=== PATIENT | male | born 1955 | race Caucasian/White ===

== ENCOUNTER 2020-01-12 14:10 | Inpatient (IN) ==
[2020-01-17] MEDS: NIFEdipine XL (24 HR) 30 MG TAB.ER.24 PO SCH (23:08)
[2020-01-17] MEDS: hydrALAZINE 25 MG TABLET PO SCH (23:08)
[2020-01-18 05:39] LABS: Basophils % 0.4 %; Eosinophils # 0.3 K/mcL (0.0-0.6); Eosinophils % 2.3 %; Hematocrit 41.1 % (37.5-50.1); Hemoglobin 13.8 g/dL (12.9-16.9); Immature Granulocytes % 0.5 % (0-4); Lymphocytes # 1.4 K/mcL (0.6-4.6); Lymphocytes % 12.8 %; Mean Corpuscular HGB Conc 33.6 g/dL (31.6-35.5); Mean Corpuscular Hemoglobin 30.6 pg (28.0-33.3); Mean Corpuscular Volume 91.1 fL (83.0-100.0); Mean Platelet Volume 9.8 fL (9.4-12.4); Monocytes # 0.9 K/mcL (0.0-1.3); Monocytes % 8.1 %; Neutrophils # 8.5 K/mcL (1.6-8.9); Platelet Count 319 K/mcL (140-400); Red Blood Count 4.51 M/mcL (4.19-5.50); Red Cell Distribution Width 13.4 % (11.5-14.5); Segmented Neutrophils % 75.9 %; White Blood Count 11.1 K/mcL (4.3-11.1)
[2020-01-18 05:53] LABS: Albumin 3.5 g/dL (3.5-5.7); Albumin/Globulin Ratio 1.3 (1.1-2.2); Bilirubin,Total 1.3 mg/dL (0.3-1.0); Calcium 8.9 mg/dL (8.6-10.3); Globulin 2.6 g/dL (2.4-3.5); Magnesium 2.3 mg/dL (1.6-2.6); Potassium 3.9 mEq/L (3.5-5.1); Total Protein 6.1 g/dL (6.4-8.9)
[2020-01-18] MEDS: lisinopriL 20 MG TABLET PO SCH (09:47)
[2020-01-18] MEDS: Aspirin Enteric Coated 325 MG Tablet PO SCH (09:48)
[2020-01-18] MEDS: hydrALAZINE 25 MG TABLET PO SCH ×2 (09:48→17:21)
[2020-01-18] MEDS: allopurinoL 100 MG TABLET PO SCH (09:48)
[2020-01-18] MEDS: Sennosides 8.6 MG TABLET PO SCH (09:48)
[2020-01-18] MEDS: polyethylene glycoL 3350 17 GM POWD.PACK PO SCH (09:48)
[2020-01-18] MEDS: NIFEdipine XL (24 HR) 30 MG TAB.ER.24 PO SCH (21:19)
[2020-01-19] MEDS: hydrALAZINE 25 MG TABLET PO SCH ×4 (00:40→23:42)
[2020-01-19] MEDS: Sennosides 8.6 MG TABLET PO SCH (08:49)
[2020-01-19] MEDS: Aspirin Enteric Coated 325 MG Tablet PO SCH (08:49)
[2020-01-19] MEDS: lisinopriL 20 MG TABLET PO SCH (08:49)
[2020-01-19] MEDS: allopurinoL 100 MG TABLET PO SCH (08:49)
[2020-01-19] MEDS: polyethylene glycoL 3350 17 GM POWD.PACK PO SCH (08:50)
[2020-01-19] MEDS: NIFEdipine XL (24 HR) 30 MG TAB.ER.24 PO SCH (21:20)
[2020-01-20] MEDS: allopurinoL 100 MG TABLET PO SCH (08:28)
[2020-01-20] MEDS: Sennosides 8.6 MG TABLET PO SCH (08:28)
[2020-01-20] MEDS: polyethylene glycoL 3350 17 GM POWD.PACK PO SCH (08:28)
[2020-01-20] MEDS: lisinopriL 20 MG TABLET PO SCH (08:28)
[2020-01-20] MEDS: Aspirin Enteric Coated 325 MG Tablet PO SCH (08:28)
[2020-01-20] MEDS: hydrALAZINE 25 MG TABLET PO SCH ×3 (08:28→23:46)
[2020-01-20] MEDS: *HR* Enoxaparin 40 MG/0.4 ML SYRINGE SQ SCH (12:51)
[2020-01-20] MEDS ORDERED: Bisacodyl 10 MG RECTAL SUPPOSITORY RC ONE (18:17)
[2020-01-20] MEDS: NIFEdipine XL (24 HR) 30 MG TAB.ER.24 PO SCH (21:15)
[2020-01-21] MEDS: *HR* Enoxaparin 40 MG/0.4 ML SYRINGE SQ SCH (04:59)
[2020-01-21] MEDS ORDERED: *HR* Enoxaparin 30 MG/0.3 ML SYRINGE SQ SCH (06:00)
[2020-01-21] MEDS: polyethylene glycoL 3350 17 GM POWD.PACK PO SCH (08:07)
[2020-01-21] MEDS: lisinopriL 20 MG TABLET PO SCH (08:07)
[2020-01-21] MEDS: allopurinoL 100 MG TABLET PO SCH (08:07)
[2020-01-21] MEDS: Sennosides 8.6 MG TABLET PO SCH (08:08)
[2020-01-21] MEDS: hydrALAZINE 25 MG TABLET PO SCH ×3 (08:08→23:29)
[2020-01-21] MEDS: Aspirin Enteric Coated 325 MG Tablet PO SCH (08:08)
[2020-01-21] MEDS: NIFEdipine XL (24 HR) 30 MG TAB.ER.24 PO SCH (19:50)
[2020-01-22] MEDS: *HR* Enoxaparin 40 MG/0.4 ML SYRINGE SQ SCH (06:28)
[2020-01-22] MEDS: hydrALAZINE 25 MG TABLET PO SCH ×3 (08:32→23:54)
[2020-01-22] MEDS: lisinopriL 20 MG TABLET PO SCH (08:33)
[2020-01-22] MEDS: polyethylene glycoL 3350 17 GM POWD.PACK PO SCH (08:33)
[2020-01-22] MEDS: allopurinoL 100 MG TABLET PO SCH (08:33)
[2020-01-22] MEDS: Aspirin Enteric Coated 325 MG Tablet PO SCH (08:33)
[2020-01-22] MEDS: Sennosides 8.6 MG TABLET PO SCH (08:33)
[2020-01-22] MEDS ORDERED: cloNIDine HCL 0.1 MG TABLET PO ONE (13:10)
[2020-01-22] MEDS: NIFEdipine XL (24 HR) 30 MG TAB.ER.24 PO SCH (20:20)
[2020-01-22] MEDS: Melatonin 3 MG TABLET PO SCH (20:20)
[2020-01-23] MEDS: *HR* Enoxaparin 40 MG/0.4 ML SYRINGE SQ SCH (05:56)
[2020-01-23] MEDS: Sennosides 8.6 MG TABLET PO SCH (08:46)
[2020-01-23] MEDS: allopurinoL 100 MG TABLET PO SCH (08:46)
[2020-01-23] MEDS: lisinopriL 20 MG TABLET PO SCH (08:46)
[2020-01-23] MEDS: hydrALAZINE 25 MG TABLET PO SCH ×3 (08:46→22:48)
[2020-01-23] MEDS: polyethylene glycoL 3350 17 GM POWD.PACK PO SCH (08:46)
[2020-01-23] MEDS: Aspirin Enteric Coated 325 MG Tablet PO SCH (08:46)
[2020-01-23] MEDS: NIFEdipine XL (24 HR) 30 MG TAB.ER.24 PO SCH (19:47)
[2020-01-23] MEDS: Melatonin 3 MG TABLET PO SCH (19:47)
[2020-01-24] MEDS: *HR* Enoxaparin 40 MG/0.4 ML SYRINGE SQ SCH (06:23)
[2020-01-24] MEDS: polyethylene glycoL 3350 17 GM POWD.PACK PO SCH (08:03)
[2020-01-24] MEDS: Sennosides 8.6 MG TABLET PO SCH (08:03)
[2020-01-24] MEDS: hydrALAZINE 25 MG TABLET PO SCH ×2 (08:03→15:21)
[2020-01-24] MEDS: Aspirin Enteric Coated 325 MG Tablet PO SCH (08:03)
[2020-01-24] MEDS: allopurinoL 100 MG TABLET PO SCH (08:03)
[2020-01-24] MEDS: lisinopriL 20 MG TABLET PO SCH (08:03)
[2020-01-24] MEDS: cloNIDine HCL 0.1 MG TABLET PO PRN ×2 (11:39→20:54)
[2020-01-24] MEDS: Bisacodyl 10 MG RECTAL SUPPOSITORY RC PRN (12:55)
[2020-01-24] MEDS: Melatonin 3 MG TABLET PO SCH (20:54)
[2020-01-24] MEDS: NIFEdipine XL (24 HR) 30 MG TAB.ER.24 PO SCH (20:54)
[2020-01-25] MEDS: hydrALAZINE 25 MG TABLET PO SCH ×3 (00:01→17:10)
[2020-01-25 05:17] LABS: Basophils % 0.6 %; Eosinophils # 0.2 K/mcL (0.0-0.6); Eosinophils % 3.9 %; Immature Granulocytes % 0.4 % (0-4); Mean Corpuscular HGB Conc 33.7 g/dL (31.6-35.5); Mean Corpuscular Hemoglobin 30.7 pg (28.0-33.3); Mean Corpuscular Volume 91.1 fL (83.0-100.0); Mean Platelet Volume 8.8 fL (9.4-12.4); Monocytes # 0.6 K/mcL (0.0-1.3); Neutrophils # 3.9 K/mcL (1.6-8.9); Platelet Count 264 K/mcL (140-400); Red Blood Count 3.84 M/mcL (4.19-5.50); Segmented Neutrophils % 72.1 %; White Blood Count 5.4 K/mcL (4.3-11.1)
[2020-01-25 05:19] LABS: Lymphocytes # 0.7 K/mcL (0.6-4.6)
[2020-01-25 05:22] LABS: Hemoglobin 11.8 g/dL (12.9-16.9)
[2020-01-25 05:31] LABS: Calcium 8.5 mg/dL (8.6-10.3); Potassium 4.1 mEq/L (3.5-5.1)
[2020-01-25] MEDS: *HR* Enoxaparin 40 MG/0.4 ML SYRINGE SQ SCH (05:56)
[2020-01-25] MEDS: Acetaminophen 325 MG TABLET PO PRN ×2 (05:57→21:03)
[2020-01-25] MEDS: Aspirin Enteric Coated 325 MG Tablet PO SCH (09:03)
[2020-01-25] MEDS: allopurinoL 100 MG TABLET PO SCH (09:03)
[2020-01-25] MEDS: Sennosides 8.6 MG TABLET PO SCH (09:03)
[2020-01-25] MEDS: lisinopriL 20 MG TABLET PO SCH (09:03)
[2020-01-25] MEDS: polyethylene glycoL 3350 17 GM POWD.PACK PO SCH (09:08)
[2020-01-25] MEDS: Melatonin 3 MG TABLET PO SCH (21:02)
[2020-01-25] MEDS: NIFEdipine XL (24 HR) 30 MG TAB.ER.24 PO SCH (21:03)
[2020-01-25 21:33] LABS: Bilirubin,Urine Negative (Negative); Blood,Urine Negative (Negative); Clarity,Urine Slightly Cloudy (Clear); Glucose,Urine (UA) Normal (Normal); Ketones,Urine Negative (Negative); Leukocyte Esterase,Urine Negative (Negative); Nitrite,Urine Negative (Negative); PH,Urine 6.5 pH Units (5.0-8.0); Protein,Urine 30 mg/dL (Neg-Trace); Urobilinogen,Urine Normal (Normal)
[2020-01-25 21:37] LABS: Amorphous Sediment,Urine Few per hpf (None-Few); Color,Urine Yellow (Yellow)
[2020-01-26] MEDS: hydrALAZINE 25 MG TABLET PO SCH ×4 (01:15→23:57)
[2020-01-26 05:29] LABS: Calcium 8.7 mg/dL (8.6-10.3); Uric Acid 7.1 mg/dL (2.3-7.6)
[2020-01-26] MEDS: *HR* Enoxaparin 40 MG/0.4 ML SYRINGE SQ SCH (06:17)
[2020-01-26] MEDS: PARoxetine 20 MG TABLET PO SCH (08:24)
[2020-01-26] MEDS: Aspirin Enteric Coated 325 MG Tablet PO SCH (08:24)
[2020-01-26] MEDS: lisinopriL 20 MG TABLET PO SCH (08:24)
[2020-01-26] MEDS: Sennosides 8.6 MG TABLET PO SCH (08:25)
[2020-01-26] MEDS: allopurinoL 100 MG TABLET PO SCH (08:25)
[2020-01-26] MEDS: polyethylene glycoL 3350 17 GM POWD.PACK PO SCH (08:25)
[2020-01-26] MEDS: Acetaminophen 325 MG TABLET PO PRN ×2 (08:33→18:42)
[2020-01-26] MEDS ORDERED: Ondansetron 4 MG/2 ML VIAL IVP PRN ×2 (10:28→12:36)
[2020-01-26] MEDS ORDERED: Ondansetron ODT 4 MG TAB.RAPDIS SL PRN ×2 (10:28→12:37)
[2020-01-26] MEDS ORDERED: Famotidine 20 MG TABLET PO ONE (10:29)
[2020-01-26 13:52] LABS: Estimated Average Glucose 128 mg/dl
[2020-01-26] MEDS: cloNIDine HCL 0.1 MG TABLET PO PRN ×2 (18:42→23:57)
[2020-01-26] MEDS: Melatonin 3 MG TABLET PO SCH (20:52)
[2020-01-26] MEDS: NIFEdipine XL (24 HR) 30 MG TAB.ER.24 PO SCH (20:52)
[2020-01-27] MEDS: PARoxetine 20 MG TABLET PO SCH (08:54)
[2020-01-27] MEDS: lisinopriL 20 MG TABLET PO SCH (08:54)
[2020-01-27] MEDS: Aspirin Enteric Coated 325 MG Tablet PO SCH (08:54)
[2020-01-27] MEDS: *HR* Enoxaparin 40 MG/0.4 ML SYRINGE SQ SCH (08:54)
[2020-01-27] MEDS: hydrALAZINE 25 MG TABLET PO SCH ×2 (08:54→16:45)
[2020-01-27] MEDS: Sennosides 8.6 MG TABLET PO SCH (08:54)
[2020-01-27] MEDS: allopurinoL 100 MG TABLET PO SCH (08:54)
[2020-01-27] MEDS: polyethylene glycoL 3350 17 GM POWD.PACK PO SCH (09:03)
[2020-01-27] MEDS: Acetaminophen 325 MG TABLET PO PRN (10:34)
[2020-01-27] MEDS: NIFEdipine XL (24 HR) 30 MG TAB.ER.24 PO SCH (20:31)
[2020-01-27] MEDS: Melatonin 3 MG TABLET PO SCH (20:31)
[2020-01-28] MEDS: cloNIDine HCL 0.1 MG TABLET PO PRN ×2 (01:18→22:21)
[2020-01-28] MEDS: hydrALAZINE 25 MG TABLET PO SCH ×4 (01:18→22:20)
[2020-01-28] MEDS: *HR* Enoxaparin 40 MG/0.4 ML SYRINGE SQ SCH (06:00)
[2020-01-28 06:05] LABS: Hematocrit 32.6 % (37.5-50.1); Hemoglobin 11.2 g/dL (12.9-16.9); Mean Corpuscular HGB Conc 34.4 g/dL (31.6-35.5); Mean Corpuscular Hemoglobin 30.6 pg (28.0-33.3); Mean Corpuscular Volume 89.1 fL (83.0-100.0); Mean Platelet Volume 9.1 fL (9.4-12.4); Platelet Count 237 K/mcL (140-400); Red Blood Count 3.66 M/mcL (4.19-5.50); Red Cell Distribution Width 13.1 % (11.5-14.5); White Blood Count 3.7 K/mcL (4.3-11.1)
[2020-01-28 06:28] LABS: Albumin 3.1 g/dL (3.5-5.7); Albumin/Globulin Ratio 1.4 (1.1-2.2); Bilirubin,Total 0.8 mg/dL (0.3-1.0); Calcium 8.4 mg/dL (8.6-10.3); Chol/HDL Ratio 4.7 (0-4.9); Globulin 2.2 g/dL (2.4-3.5); Magnesium 2.4 mg/dL (1.6-2.6); Total Protein 5.3 g/dL (6.4-8.9)
[2020-01-28 06:39] LABS: Thyroid Stimulating Hormone 2.185 mcIU/mL (0.340-5.600)
[2020-01-28] MEDS: PARoxetine 20 MG TABLET PO SCH (08:45)
[2020-01-28] MEDS: allopurinoL 100 MG TABLET PO SCH (08:45)
[2020-01-28] MEDS: Aspirin Enteric Coated 325 MG Tablet PO SCH (08:45)
[2020-01-28] MEDS: Sennosides 8.6 MG TABLET PO SCH (08:45)
[2020-01-28] MEDS: lisinopriL 20 MG TABLET PO SCH (08:45)
[2020-01-28] MEDS: polyethylene glycoL 3350 17 GM POWD.PACK PO SCH (08:46)
[2020-01-28] MEDS: Bisacodyl 10 MG RECTAL SUPPOSITORY RC PRN (16:06)
[2020-01-28] MEDS: Melatonin 3 MG TABLET PO SCH (22:20)
[2020-01-28] MEDS: NIFEdipine XL (24 HR) 30 MG TAB.ER.24 PO SCH (22:20)
[2020-01-28] MEDS: Mirtazapine 15 MG TABLET PO SCH (22:20)
[2020-01-29] MEDS: *HR* Enoxaparin 40 MG/0.4 ML SYRINGE SQ SCH (05:45)
[2020-01-29] MEDS: allopurinoL 100 MG TABLET PO SCH (08:19)
[2020-01-29] MEDS: lisinopriL 20 MG TABLET PO SCH (08:19)
[2020-01-29] MEDS: Aspirin Enteric Coated 325 MG Tablet PO SCH (08:19)
[2020-01-29] MEDS: Sennosides 8.6 MG TABLET PO SCH (08:19)
[2020-01-29] MEDS: polyethylene glycoL 3350 17 GM POWD.PACK PO SCH (08:20)
[2020-01-29] MEDS: hydrALAZINE 25 MG TABLET PO SCH ×4 (08:21→22:49)
[2020-01-29] MEDS: NIFEdipine XL (24 HR) 30 MG TAB.ER.24 PO SCH (22:49)
[2020-01-29] MEDS: Melatonin 3 MG TABLET PO SCH (22:50)
[2020-01-29] MEDS: Mirtazapine 15 MG TABLET PO SCH (22:50)
[2020-01-30] MEDS: Acetaminophen 325 MG TABLET PO PRN (06:57)
[2020-01-30] MEDS: *HR* Enoxaparin 40 MG/0.4 ML SYRINGE SQ SCH (06:58)
[2020-01-30] MEDS: hydrALAZINE 25 MG TABLET PO SCH ×3 (09:43→23:32)
[2020-01-30] MEDS: allopurinoL 100 MG TABLET PO SCH (09:43)
[2020-01-30] MEDS: lisinopriL 20 MG TABLET PO SCH (09:43)
[2020-01-30] MEDS: Sennosides 8.6 MG TABLET PO SCH (09:43)
[2020-01-30] MEDS: polyethylene glycoL 3350 17 GM POWD.PACK PO SCH (09:43)
[2020-01-30] MEDS: Aspirin Enteric Coated 325 MG Tablet PO SCH (09:43)
[2020-01-30] MEDS: cloNIDine HCL 0.1 MG TABLET PO PRN (20:50)
[2020-01-30] MEDS: Melatonin 3 MG TABLET PO SCH (20:51)
[2020-01-30] MEDS: Mirtazapine 15 MG TABLET PO SCH (20:52)
[2020-01-30] MEDS: NIFEdipine XL (24 HR) 30 MG TAB.ER.24 PO SCH (20:54)
[2020-01-31] MEDS: *HR* Enoxaparin 40 MG/0.4 ML SYRINGE SQ SCH (06:35)
[2020-01-31] MEDS: Aspirin Enteric Coated 325 MG Tablet PO SCH (08:39)
[2020-01-31] MEDS: polyethylene glycoL 3350 17 GM POWD.PACK PO SCH (08:39)
[2020-01-31] MEDS: hydrALAZINE 25 MG TABLET PO SCH ×3 (08:39→23:28)
[2020-01-31] MEDS: Sennosides 8.6 MG TABLET PO SCH (08:39)
[2020-01-31] MEDS: lisinopriL 20 MG TABLET PO SCH (08:39)
[2020-01-31] MEDS: allopurinoL 100 MG TABLET PO SCH (08:39)
[2020-01-31] MEDS: cloNIDine HCL 0.1 MG TABLET PO PRN (16:12)
[2020-01-31] MEDS: Mirtazapine 15 MG TABLET PO SCH (20:39)
[2020-01-31] MEDS: Melatonin 3 MG TABLET PO SCH (20:39)
[2020-01-31] MEDS: NIFEdipine XL (24 HR) 30 MG TAB.ER.24 PO SCH (20:39)
[2020-02-01] MEDS: *HR* Enoxaparin 40 MG/0.4 ML SYRINGE SQ SCH (04:34)
[2020-02-01] MEDS: Aspirin Enteric Coated 325 MG Tablet PO SCH (08:28)
[2020-02-01] MEDS: lisinopriL 20 MG TABLET PO SCH (08:28)
[2020-02-01] MEDS: hydrALAZINE 25 MG TABLET PO SCH ×3 (08:28→23:48)
[2020-02-01] MEDS: Sennosides 8.6 MG TABLET PO SCH (08:28)
[2020-02-01] MEDS: allopurinoL 100 MG TABLET PO SCH (08:28)
[2020-02-01] MEDS: polyethylene glycoL 3350 17 GM POWD.PACK PO SCH ×2 (08:29→20:05)
[2020-02-01] MEDS: Bisacodyl 10 MG RECTAL SUPPOSITORY RC PRN (14:49)
[2020-02-01] MEDS: NIFEdipine XL (24 HR) 30 MG TAB.ER.24 PO SCH (20:03)
[2020-02-01] MEDS: Mirtazapine 15 MG TABLET PO SCH (20:03)
[2020-02-01] MEDS: Melatonin 3 MG TABLET PO SCH (20:03)
[2020-02-02] MEDS: *HR* Enoxaparin 40 MG/0.4 ML SYRINGE SQ SCH (06:31)
[2020-02-02] MEDS: Aspirin Enteric Coated 325 MG Tablet PO SCH (08:15)
[2020-02-02] MEDS: allopurinoL 100 MG TABLET PO SCH (08:15)
[2020-02-02] MEDS: Sennosides 8.6 MG TABLET PO SCH (08:15)
[2020-02-02] MEDS: hydrALAZINE 25 MG TABLET PO SCH ×3 (08:15→23:29)
[2020-02-02] MEDS: lisinopriL 20 MG TABLET PO SCH (08:15)
[2020-02-02] MEDS: polyethylene glycoL 3350 17 GM POWD.PACK PO SCH ×2 (08:16→20:07)
[2020-02-02] MEDS: NIFEdipine XL (24 HR) 30 MG TAB.ER.24 PO SCH (20:07)
[2020-02-02] MEDS: Melatonin 3 MG TABLET PO SCH (20:08)
[2020-02-02] MEDS: Mirtazapine 15 MG TABLET PO SCH (20:08)
[2020-02-03] MEDS: *HR* Enoxaparin 40 MG/0.4 ML SYRINGE SQ SCH (04:58)
[2020-02-03] MEDS: allopurinoL 100 MG TABLET PO SCH (08:50)
[2020-02-03] MEDS: hydrALAZINE 25 MG TABLET PO SCH ×3 (08:50→23:41)
[2020-02-03] MEDS: Sennosides 8.6 MG TABLET PO SCH (08:50)
[2020-02-03] MEDS: Aspirin Enteric Coated 325 MG Tablet PO SCH (08:50)
[2020-02-03] MEDS: lisinopriL 20 MG TABLET PO SCH (08:50)
[2020-02-03] MEDS: polyethylene glycoL 3350 17 GM POWD.PACK PO SCH ×2 (08:50→21:42)
[2020-02-03] MEDS: NIFEdipine XL (24 HR) 30 MG TAB.ER.24 PO SCH (21:36)
[2020-02-03] MEDS: Melatonin 3 MG TABLET PO SCH (21:38)
[2020-02-03] MEDS: cloNIDine HCL 0.1 MG TABLET PO PRN (21:40)
[2020-02-03] MEDS: Mirtazapine 15 MG TABLET PO SCH (21:40)
[2020-02-03] MEDS: Acetaminophen 325 MG TABLET PO PRN (21:41)
[2020-02-04] MEDS: *HR* Enoxaparin 40 MG/0.4 ML SYRINGE SQ SCH (05:49)
[2020-02-04 06:15] LABS: Basophils % 0.6 %; Eosinophils # 0.3 K/mcL (0.0-0.6); Eosinophils % 6.1 %; Hematocrit 30.6 % (37.5-50.1); Hemoglobin 10.1 g/dL (12.9-16.9); Immature Granulocytes % 0.6 % (0-4); Lymphocytes # 0.9 K/mcL (0.6-4.6); Lymphocytes % 17.8 %; Mean Corpuscular Hemoglobin 30.2 pg (28.0-33.3); Mean Corpuscular Volume 91.6 fL (83.0-100.0); Mean Platelet Volume 8.7 fL (9.4-12.4); Monocytes # 0.5 K/mcL (0.0-1.3); Monocytes % 9.7 %; Neutrophils # 3.3 K/mcL (1.6-8.9); Platelet Count 275 K/mcL (140-400); Red Blood Count 3.34 M/mcL (4.19-5.50); Red Cell Distribution Width 13.9 % (11.5-14.5); Segmented Neutrophils % 65.2 %; White Blood Count 5.1 K/mcL (4.3-11.1)
[2020-02-04 06:28] LABS: Calcium 8.7 mg/dL (8.6-10.3); Potassium 4.1 mEq/L (3.5-5.1)
[2020-02-04] MEDS: Sennosides 8.6 MG TABLET PO SCH (08:42)
[2020-02-04] MEDS: lisinopriL 20 MG TABLET PO SCH (08:43)
[2020-02-04] MEDS: Aspirin Enteric Coated 325 MG Tablet PO SCH (08:43)
[2020-02-04] MEDS: allopurinoL 100 MG TABLET PO SCH (08:43)
[2020-02-04] MEDS: polyethylene glycoL 3350 17 GM POWD.PACK PO SCH ×2 (08:44→20:59)
[2020-02-04] MEDS: hydrALAZINE 25 MG TABLET PO SCH ×3 (08:44→23:24)
[2020-02-04] MEDS ORDERED: 0.9 % Sodium Chloride 500 ML IVC ONE (09:26)
[2020-02-04] MEDS ORDERED: 0.9 % Sodium Chloride 500 ML ONE (09:48)
[2020-02-04] MEDS: NIFEdipine XL (24 HR) 30 MG TAB.ER.24 PO SCH (20:56)
[2020-02-04] MEDS: Melatonin 3 MG TABLET PO SCH (20:57)
[2020-02-04] MEDS: cloNIDine HCL 0.1 MG TABLET PO PRN (20:57)
[2020-02-04] MEDS: Acetaminophen 325 MG TABLET PO PRN (20:58)
[2020-02-04] MEDS: Mirtazapine 15 MG TABLET PO SCH (20:58)
[2020-02-04] MEDS: Bisacodyl 10 MG RECTAL SUPPOSITORY RC PRN (20:59)
[2020-02-05] MEDS: Acetaminophen 325 MG TABLET PO PRN (05:27)
[2020-02-05] MEDS: *HR* Enoxaparin 40 MG/0.4 ML SYRINGE SQ SCH (05:28)
[2020-02-05] MEDS: hydrALAZINE 25 MG TABLET PO SCH ×3 (08:32→23:34)
[2020-02-05] MEDS: Aspirin Enteric Coated 325 MG Tablet PO SCH (08:32)
[2020-02-05] MEDS: Sennosides 8.6 MG TABLET PO SCH (08:32)
[2020-02-05] MEDS: lisinopriL 20 MG TABLET PO SCH (08:32)
[2020-02-05] MEDS: allopurinoL 100 MG TABLET PO SCH (08:32)
[2020-02-05] MEDS: polyethylene glycoL 3350 17 GM POWD.PACK PO SCH ×2 (08:33→20:58)
[2020-02-05] MEDS: NIFEdipine XL (24 HR) 30 MG TAB.ER.24 PO SCH (20:55)
[2020-02-05] MEDS: Melatonin 3 MG TABLET PO SCH (20:56)
[2020-02-05] MEDS: Mirtazapine 15 MG TABLET PO SCH (20:56)
[2020-02-05] MEDS: cloNIDine HCL 0.1 MG TABLET PO PRN (20:57)
[2020-02-06] MEDS: Acetaminophen 325 MG TABLET PO PRN (00:25)
[2020-02-06] MEDS: *HR* Enoxaparin 40 MG/0.4 ML SYRINGE SQ SCH (04:59)
[2020-02-06] MEDS: hydrALAZINE 25 MG TABLET PO SCH ×2 (08:30→16:48)
[2020-02-06] MEDS: Aspirin Enteric Coated 325 MG Tablet PO SCH (08:30)
[2020-02-06] MEDS: lisinopriL 20 MG TABLET PO SCH (08:30)
[2020-02-06] MEDS: allopurinoL 100 MG TABLET PO SCH (08:30)
[2020-02-06] MEDS: polyethylene glycoL 3350 17 GM POWD.PACK PO SCH ×2 (08:30→20:44)
[2020-02-06] MEDS: Sennosides 8.6 MG TABLET PO SCH (08:30)
[2020-02-06] MEDS: Melatonin 3 MG TABLET PO SCH (20:43)
[2020-02-06] MEDS: cloNIDine HCL 0.1 MG TABLET PO PRN (20:44)
[2020-02-06] MEDS: NIFEdipine XL (24 HR) 30 MG TAB.ER.24 PO SCH (20:44)
[2020-02-06] MEDS: Mirtazapine 15 MG TABLET PO SCH (20:44)
[2020-02-07] MEDS: hydrALAZINE 25 MG TABLET PO SCH ×3 (00:25→16:50)
[2020-02-07] MEDS: *HR* Enoxaparin 40 MG/0.4 ML SYRINGE SQ SCH (06:43)
[2020-02-07] MEDS: Aspirin Enteric Coated 325 MG Tablet PO SCH (08:40)
[2020-02-07] MEDS: Sennosides 8.6 MG TABLET PO SCH (08:40)
[2020-02-07] MEDS: allopurinoL 100 MG TABLET PO SCH (08:40)
[2020-02-07] MEDS: polyethylene glycoL 3350 17 GM POWD.PACK PO SCH ×2 (08:40→21:23)
[2020-02-07] MEDS: lisinopriL 20 MG TABLET PO SCH (08:40)
[2020-02-07] MEDS: Melatonin 3 MG TABLET PO SCH (21:23)
[2020-02-07] MEDS: cloNIDine HCL 0.1 MG TABLET PO PRN (21:24)
[2020-02-07] MEDS: Mirtazapine 15 MG TABLET PO SCH (21:24)
[2020-02-07] MEDS: NIFEdipine XL (24 HR) 30 MG TAB.ER.24 PO SCH (21:24)
[2020-02-08] MEDS: hydrALAZINE 25 MG TABLET PO SCH ×4 (00:56→22:36)
[2020-02-08] MEDS: *HR* Enoxaparin 40 MG/0.4 ML SYRINGE SQ SCH (06:06)
[2020-02-08] MEDS: lisinopriL 20 MG TABLET PO SCH (08:26)
[2020-02-08] MEDS: Aspirin Enteric Coated 325 MG Tablet PO SCH (08:26)
[2020-02-08] MEDS: allopurinoL 100 MG TABLET PO SCH (08:26)
[2020-02-08] MEDS: Sennosides 8.6 MG TABLET PO SCH (08:26)
[2020-02-08] MEDS: polyethylene glycoL 3350 17 GM POWD.PACK PO SCH ×3 (08:26→22:48)
[2020-02-08] MEDS: Acetaminophen 325 MG TABLET PO PRN (22:36)
[2020-02-08] MEDS: NIFEdipine XL (24 HR) 30 MG TAB.ER.24 PO SCH (22:36)
[2020-02-08] MEDS: Melatonin 3 MG TABLET PO SCH (22:36)
[2020-02-08] MEDS: Mirtazapine 15 MG TABLET PO SCH (22:36)
[2020-02-09] MEDS: *HR* Enoxaparin 40 MG/0.4 ML SYRINGE SQ SCH (06:13)
[2020-02-09] MEDS: lisinopriL 20 MG TABLET PO SCH (08:01)
[2020-02-09] MEDS: Sennosides 8.6 MG TABLET PO SCH (08:01)
[2020-02-09] MEDS: allopurinoL 100 MG TABLET PO SCH (08:02)
[2020-02-09] MEDS: Aspirin Enteric Coated 325 MG Tablet PO SCH (08:02)
[2020-02-09] MEDS: hydrALAZINE 25 MG TABLET PO SCH ×2 (08:02→15:52)
[2020-02-09] MEDS: polyethylene glycoL 3350 17 GM POWD.PACK PO SCH ×2 (08:03→21:32)
[2020-02-09] MEDS: Mirtazapine 15 MG TABLET PO SCH (21:32)
[2020-02-09] MEDS: Melatonin 3 MG TABLET PO SCH (21:32)
[2020-02-09] MEDS: NIFEdipine XL (24 HR) 30 MG TAB.ER.24 PO SCH (21:32)
[2020-02-09] MEDS: Acetaminophen 325 MG TABLET PO PRN (21:37)
[2020-02-10] MEDS: hydrALAZINE 25 MG TABLET PO SCH ×4 (00:32→23:17)
[2020-02-10] MEDS: *HR* Enoxaparin 40 MG/0.4 ML SYRINGE SQ SCH (04:56)
[2020-02-10] MEDS: lisinopriL 20 MG TABLET PO SCH (08:40)
[2020-02-10] MEDS: polyethylene glycoL 3350 17 GM POWD.PACK PO SCH ×2 (08:41→20:05)
[2020-02-10] MEDS: Aspirin Enteric Coated 325 MG Tablet PO SCH (08:41)
[2020-02-10] MEDS: allopurinoL 100 MG TABLET PO SCH (08:41)
[2020-02-10] MEDS: Sennosides 8.6 MG TABLET PO SCH (08:41)
[2020-02-10] MEDS: Acetaminophen 325 MG TABLET PO PRN ×2 (13:25→23:16)
[2020-02-10] MEDS: Melatonin 3 MG TABLET PO SCH (20:03)
[2020-02-10] MEDS: NIFEdipine XL (24 HR) 30 MG TAB.ER.24 PO SCH (20:03)
[2020-02-10] MEDS: Mirtazapine 15 MG TABLET PO SCH (20:04)
[2020-02-10] MEDS: Bisacodyl 10 MG RECTAL SUPPOSITORY RC PRN (20:05)
[2020-02-11] MEDS: Acetaminophen 325 MG TABLET PO PRN ×2 (06:07→22:21)
[2020-02-11] MEDS: *HR* Enoxaparin 40 MG/0.4 ML SYRINGE SQ SCH (06:07)
[2020-02-11] MEDS: hydrALAZINE 25 MG TABLET PO SCH ×3 (08:40→22:21)
[2020-02-11] MEDS: lisinopriL 20 MG TABLET PO SCH (08:40)
[2020-02-11] MEDS: Aspirin Enteric Coated 325 MG Tablet PO SCH (08:40)
[2020-02-11] MEDS: Sennosides 8.6 MG TABLET PO SCH (08:40)
[2020-02-11] MEDS: allopurinoL 100 MG TABLET PO SCH (08:40)
[2020-02-11] MEDS: polyethylene glycoL 3350 17 GM POWD.PACK PO SCH ×2 (08:40→22:22)
[2020-02-11] MEDS: NIFEdipine XL (24 HR) 30 MG TAB.ER.24 PO SCH (22:20)
[2020-02-11] MEDS: Melatonin 3 MG TABLET PO SCH (22:21)
[2020-02-11] MEDS: Mirtazapine 15 MG TABLET PO SCH (22:21)
[2020-02-12] MEDS: *HR* Enoxaparin 40 MG/0.4 ML SYRINGE SQ SCH (04:17)
[2020-02-12 05:36] LABS: Hematocrit 31.9 % (37.5-50.1); Hemoglobin 10.5 g/dL (12.9-16.9); Mean Corpuscular HGB Conc 32.9 g/dL (31.6-35.5); Mean Corpuscular Hemoglobin 30.7 pg (28.0-33.3); Mean Corpuscular Volume 93.3 fL (83.0-100.0); Mean Platelet Volume 9.4 fL (9.4-12.4); Platelet Count 365 K/mcL (140-400); Red Blood Count 3.42 M/mcL (4.19-5.50); Red Cell Distribution Width 14.4 % (11.5-14.5); White Blood Count 5.4 K/mcL (4.3-11.1)
[2020-02-12 05:55] LABS: Calcium 8.9 mg/dL (8.6-10.3); Magnesium 2.3 mg/dL (1.6-2.6); Potassium 3.9 mEq/L (3.5-5.1)
[2020-02-12] MEDS: polyethylene glycoL 3350 17 GM POWD.PACK PO SCH ×2 (08:43→19:54)
[2020-02-12] MEDS: Sennosides 8.6 MG TABLET PO SCH (08:43)
[2020-02-12] MEDS: Aspirin Enteric Coated 325 MG Tablet PO SCH (08:43)
[2020-02-12] MEDS: hydrALAZINE 25 MG TABLET PO SCH ×2 (08:44→16:12)
[2020-02-12] MEDS: lisinopriL 20 MG TABLET PO SCH (08:44)
[2020-02-12] MEDS: allopurinoL 100 MG TABLET PO SCH (08:44)
[2020-02-12] MEDS: NIFEdipine XL (24 HR) 30 MG TAB.ER.24 PO SCH (19:50)
[2020-02-12] MEDS: Melatonin 3 MG TABLET PO SCH (19:51)
[2020-02-12] MEDS: Mirtazapine 15 MG TABLET PO SCH (19:51)
[2020-02-13] MEDS: hydrALAZINE 25 MG TABLET PO SCH ×4 (01:04→22:49)
[2020-02-13] MEDS: *HR* Enoxaparin 40 MG/0.4 ML SYRINGE SQ SCH (05:53)
[2020-02-13] MEDS: Sennosides 8.6 MG TABLET PO SCH (08:09)
[2020-02-13] MEDS: Aspirin Enteric Coated 325 MG Tablet PO SCH (08:09)
[2020-02-13] MEDS: Acetaminophen 325 MG TABLET PO PRN ×2 (08:09→17:57)
[2020-02-13] MEDS: lisinopriL 20 MG TABLET PO SCH (08:09)
[2020-02-13] MEDS: allopurinoL 100 MG TABLET PO SCH (08:09)
[2020-02-13] MEDS: polyethylene glycoL 3350 17 GM POWD.PACK PO SCH ×2 (08:10→22:48)
[2020-02-13] MEDS: Mirtazapine 15 MG TABLET PO SCH (22:49)
[2020-02-13] MEDS: NIFEdipine XL (24 HR) 30 MG TAB.ER.24 PO SCH (22:49)
[2020-02-13] MEDS: Melatonin 3 MG TABLET PO SCH (22:49)
[2020-02-14] MEDS: Acetaminophen 325 MG TABLET PO PRN ×3 (02:35→22:06)
[2020-02-14] MEDS: *HR* Enoxaparin 40 MG/0.4 ML SYRINGE SQ SCH (06:03)
[2020-02-14] MEDS: polyethylene glycoL 3350 17 GM POWD.PACK PO SCH ×2 (08:41→21:47)
[2020-02-14] MEDS: lisinopriL 20 MG TABLET PO SCH (08:42)
[2020-02-14] MEDS: Sennosides 8.6 MG TABLET PO SCH (08:42)
[2020-02-14] MEDS: allopurinoL 100 MG TABLET PO SCH (08:42)
[2020-02-14] MEDS: hydrALAZINE 25 MG TABLET PO SCH ×2 (08:42→15:58)
[2020-02-14] MEDS: Aspirin Enteric Coated 325 MG Tablet PO SCH (08:42)
[2020-02-14] MEDS ORDERED: *HR* HYDROcodone/Acet 5/325 mg TABLET PO PRN (10:20)
[2020-02-14] MEDS: Melatonin 3 MG TABLET PO SCH (21:49)
[2020-02-14] MEDS: NIFEdipine XL (24 HR) 30 MG TAB.ER.24 PO SCH (21:50)
[2020-02-14] MEDS: Mirtazapine 15 MG TABLET PO SCH (21:51)
[2020-02-15] MEDS: hydrALAZINE 25 MG TABLET PO SCH ×3 (00:31→16:49)
[2020-02-15] MEDS: *HR* Enoxaparin 40 MG/0.4 ML SYRINGE SQ SCH (05:20)
[2020-02-15] MEDS: *HR* HYDROcodone/Acet 5/325 mg TABLET PO PRN (05:20)
[2020-02-15] MEDS: polyethylene glycoL 3350 17 GM POWD.PACK PO SCH ×2 (08:59→20:46)
[2020-02-15] MEDS: allopurinoL 100 MG TABLET PO SCH (09:00)
[2020-02-15] MEDS: lisinopriL 20 MG TABLET PO SCH (09:00)
[2020-02-15] MEDS: Aspirin Enteric Coated 325 MG Tablet PO SCH (09:00)
[2020-02-15] MEDS: Sennosides 8.6 MG TABLET PO SCH (09:00)
[2020-02-15] MEDS: predniSONE 20 MG TABLET PO SCH (12:40)
[2020-02-15] MEDS: Colchicine 0.6 MG TABLET PO SCH (12:40)
[2020-02-15] MEDS: Melatonin 3 MG TABLET PO SCH (20:46)
[2020-02-15] MEDS: Mirtazapine 15 MG TABLET PO SCH (20:46)
[2020-02-15] MEDS: NIFEdipine XL (24 HR) 30 MG TAB.ER.24 PO SCH (20:46)
[2020-02-16] MEDS: hydrALAZINE 25 MG TABLET PO SCH ×4 (00:11→23:32)
[2020-02-16] MEDS: *HR* Enoxaparin 40 MG/0.4 ML SYRINGE SQ SCH (05:21)
[2020-02-16] MEDS: Aspirin Enteric Coated 325 MG Tablet PO SCH (08:40)
[2020-02-16] MEDS: polyethylene glycoL 3350 17 GM POWD.PACK PO SCH ×2 (08:40→20:05)
[2020-02-16] MEDS: predniSONE 20 MG TABLET PO SCH (08:40)
[2020-02-16] MEDS: Acetaminophen 325 MG TABLET PO PRN ×3 (08:40→23:32)
[2020-02-16] MEDS: Colchicine 0.6 MG TABLET PO SCH (08:40)
[2020-02-16] MEDS: allopurinoL 100 MG TABLET PO SCH (08:40)
[2020-02-16] MEDS: Sennosides 8.6 MG TABLET PO SCH (08:40)
[2020-02-16] MEDS: lisinopriL 20 MG TABLET PO SCH (08:40)
[2020-02-16] MEDS: Melatonin 3 MG TABLET PO SCH (20:05)
[2020-02-16] MEDS: NIFEdipine XL (24 HR) 30 MG TAB.ER.24 PO SCH (20:05)
[2020-02-16] MEDS: Mirtazapine 15 MG TABLET PO SCH (20:05)
[2020-02-17] MEDS: *HR* Enoxaparin 40 MG/0.4 ML SYRINGE SQ SCH (05:16)
[2020-02-17] MEDS: Bisacodyl 10 MG RECTAL SUPPOSITORY RC PRN (05:53)
[2020-02-17] MEDS: hydrALAZINE 25 MG TABLET PO SCH ×3 (08:03→23:26)
[2020-02-17] MEDS: Colchicine 0.6 MG TABLET PO SCH (08:03)
[2020-02-17] MEDS: allopurinoL 100 MG TABLET PO SCH (08:03)
[2020-02-17] MEDS: Sennosides 8.6 MG TABLET PO SCH (08:03)
[2020-02-17] MEDS: Aspirin Enteric Coated 325 MG Tablet PO SCH (08:03)
[2020-02-17] MEDS: lisinopriL 20 MG TABLET PO SCH (08:03)
[2020-02-17] MEDS: predniSONE 20 MG TABLET PO SCH (08:03)
[2020-02-17] MEDS: polyethylene glycoL 3350 17 GM POWD.PACK PO SCH ×2 (08:03→20:45)
[2020-02-17] MEDS: Acetaminophen 325 MG TABLET PO PRN (08:03)
[2020-02-17] MEDS: NIFEdipine XL (24 HR) 30 MG TAB.ER.24 PO SCH (20:46)
[2020-02-17] MEDS: Melatonin 3 MG TABLET PO SCH (20:46)
[2020-02-17] MEDS: Mirtazapine 15 MG TABLET PO SCH (20:46)
[2020-02-17] MEDS: cloNIDine HCL 0.1 MG TABLET PO PRN (23:26)
[2020-02-18] MEDS: *HR* Enoxaparin 40 MG/0.4 ML SYRINGE SQ SCH (06:08)
[2020-02-18] MEDS: Aspirin Enteric Coated 325 MG Tablet PO SCH (09:44)
[2020-02-18] MEDS: Sennosides 8.6 MG TABLET PO SCH (09:44)
[2020-02-18] MEDS: allopurinoL 100 MG TABLET PO SCH (09:44)
[2020-02-18] MEDS: Colchicine 0.6 MG TABLET PO SCH (09:44)
[2020-02-18] MEDS: lisinopriL 20 MG TABLET PO SCH (09:44)
[2020-02-18] MEDS: polyethylene glycoL 3350 17 GM POWD.PACK PO SCH ×2 (09:44→23:17)
[2020-02-18] MEDS: hydrALAZINE 25 MG TABLET PO SCH ×3 (09:44→23:16)
[2020-02-18] MEDS: predniSONE 20 MG TABLET PO SCH (09:44)
[2020-02-18 19:52] LABS: Adenovirus Not Detected (Not Detect); Bordetella Pertussis Not Detected (Not Detect); Chlamydophila pneumoniae Not Detected (Not Detect); Coronavirus 229E Not Detected (Not Detect); Coronavirus HKU1 Not Detected (Not Detect); Coronavirus NL63 Not Detected (Not Detect); Coronavirus OC43 Not Detected (Not Detect); Human Metapneumovirus Not Detected (Not Detect); Human Rhinovirus/Enterovirus Not Detected (Not Detect); Influenza A Subtype 2009 H1 Not Detected (Not Detect); Influenza B Not Detected (Not Detect); Mycoplasma pneumoniae Not Detected (Not Detect); Parainfluenza Virus 1 Not Detected (Not Detect); Parainfluenza Virus 2 Not Detected (Not Detect); Parainfluenza Virus 3 Not Detected (Not Detect); Parainfluenza Virus 4 Not Detected (Not Detect); Respiratory Syncytial Virus Not Detected (Not Detect); SARS-CoV-2 Not Detected (Not Detect)
[2020-02-18] MEDS: Mirtazapine 15 MG TABLET PO SCH (23:16)
[2020-02-18] MEDS: Melatonin 3 MG TABLET PO SCH (23:16)
[2020-02-18] MEDS: NIFEdipine XL (24 HR) 30 MG TAB.ER.24 PO SCH (23:22)
[2020-02-19 05:00] LABS: Basophils # 0.1 K/mcL (0.0-0.2); Basophils % 0.7 %; Eosinophils # 0.1 K/mcL (0.0-0.6); Eosinophils % 1.1 %; Hematocrit 36.7 % (37.5-50.1); Immature Granulocytes % 0.9 % (0-4); Lymphocytes # 1.9 K/mcL (0.6-4.6); Lymphocytes % 22.6 %; Mean Corpuscular HGB Conc 32.7 g/dL (31.6-35.5); Mean Corpuscular Hemoglobin 30.2 pg (28.0-33.3); Mean Corpuscular Volume 92.4 fL (83.0-100.0); Mean Platelet Volume 8.9 fL (9.4-12.4); Monocytes # 0.6 K/mcL (0.0-1.3); Monocytes % 7.6 %; Neutrophils # 5.7 K/mcL (1.6-8.9); Platelet Count 337 K/mcL (140-400); Red Blood Count 3.97 M/mcL (4.19-5.50); Red Cell Distribution Width 13.5 % (11.5-14.5); Segmented Neutrophils % 67.1 %; White Blood Count 8.4 K/mcL (4.3-11.1)
[2020-02-19 05:21] LABS: Calcium 8.9 mg/dL (8.6-10.3); Potassium 3.8 mEq/L (3.5-5.1)
[2020-02-19] MEDS: *HR* Enoxaparin 40 MG/0.4 ML SYRINGE SQ SCH (06:26)
[2020-02-19] MEDS: Aspirin Enteric Coated 325 MG Tablet PO SCH (08:06)
[2020-02-19] MEDS: lisinopriL 20 MG TABLET PO SCH (08:06)
[2020-02-19] MEDS: polyethylene glycoL 3350 17 GM POWD.PACK PO SCH ×2 (08:08→21:21)
[2020-02-19] MEDS: Sennosides 8.6 MG TABLET PO SCH (08:08)
[2020-02-19] MEDS: hydrALAZINE 25 MG TABLET PO SCH ×2 (08:08→17:47)
[2020-02-19] MEDS: predniSONE 20 MG TABLET PO SCH (08:08)
[2020-02-19] MEDS: allopurinoL 100 MG TABLET PO SCH (08:08)
[2020-02-19] MEDS: *HR* HYDROcodone/Acet 5/325 mg TABLET PO PRN (21:20)
[2020-02-19] MEDS: Melatonin 3 MG TABLET PO SCH (21:21)
[2020-02-19] MEDS: NIFEdipine XL (24 HR) 30 MG TAB.ER.24 PO SCH (21:21)
[2020-02-19] MEDS: Mirtazapine 15 MG TABLET PO SCH (21:21)
[2020-02-20] MEDS: *HR* Enoxaparin 40 MG/0.4 ML SYRINGE SQ SCH (06:09)
[2020-02-20] MEDS: Aspirin Enteric Coated 325 MG Tablet PO SCH (09:22)
[2020-02-20] MEDS: Sennosides 8.6 MG TABLET PO SCH (09:22)
[2020-02-20] MEDS: hydrALAZINE 25 MG TABLET PO SCH ×4 (09:23→23:18)
[2020-02-20] MEDS: lisinopriL 20 MG TABLET PO SCH (09:23)
[2020-02-20] MEDS: allopurinoL 100 MG TABLET PO SCH (09:24)
[2020-02-20] MEDS: predniSONE 20 MG TABLET PO SCH (09:24)
[2020-02-20] MEDS: polyethylene glycoL 3350 17 GM POWD.PACK PO SCH ×2 (09:24→20:47)
[2020-02-20] MEDS: Mirtazapine 15 MG TABLET PO SCH (20:43)
[2020-02-20] MEDS: NIFEdipine XL (24 HR) 30 MG TAB.ER.24 PO SCH (20:43)
[2020-02-20] MEDS: cloNIDine HCL 0.1 MG TABLET PO PRN ×2 (20:43)
[2020-02-20] MEDS: Melatonin 3 MG TABLET PO SCH (20:43)
[2020-02-21] MEDS: *HR* Enoxaparin 40 MG/0.4 ML SYRINGE SQ SCH (06:33)
[2020-02-21] MEDS: hydrALAZINE 25 MG TABLET PO SCH ×3 (08:51→23:14)
[2020-02-21] MEDS: Aspirin Enteric Coated 325 MG Tablet PO SCH (08:51)
[2020-02-21] MEDS: polyethylene glycoL 3350 17 GM POWD.PACK PO SCH ×2 (08:51→20:04)
[2020-02-21] MEDS: lisinopriL 20 MG TABLET PO SCH (08:51)
[2020-02-21] MEDS: allopurinoL 100 MG TABLET PO SCH (08:52)
[2020-02-21] MEDS: Sennosides 8.6 MG TABLET PO SCH (08:52)
[2020-02-21] MEDS: NIFEdipine XL (24 HR) 30 MG TAB.ER.24 PO SCH (20:03)
[2020-02-21] MEDS: Mirtazapine 15 MG TABLET PO SCH (20:04)
[2020-02-21] MEDS: Melatonin 3 MG TABLET PO SCH (20:04)
[2020-02-22] MEDS: *HR* Enoxaparin 40 MG/0.4 ML SYRINGE SQ SCH (05:12)
[2020-02-22] MEDS: Sennosides 8.6 MG TABLET PO SCH (08:47)
[2020-02-22] MEDS: Aspirin Enteric Coated 325 MG Tablet PO SCH (08:47)
[2020-02-22] MEDS: lisinopriL 20 MG TABLET PO SCH (08:47)
[2020-02-22] MEDS: allopurinoL 100 MG TABLET PO SCH (08:47)
[2020-02-22] MEDS: hydrALAZINE 25 MG TABLET PO SCH ×3 (08:47→23:19)
[2020-02-22] MEDS: polyethylene glycoL 3350 17 GM POWD.PACK PO SCH ×2 (08:47→19:52)
[2020-02-22] MEDS: Melatonin 3 MG TABLET PO SCH (19:53)
[2020-02-22] MEDS: Mirtazapine 15 MG TABLET PO SCH (19:53)
[2020-02-22] MEDS: NIFEdipine XL (24 HR) 30 MG TAB.ER.24 PO SCH (19:53)
[2020-02-23] MEDS: *HR* Enoxaparin 40 MG/0.4 ML SYRINGE SQ SCH (06:18)
[2020-02-23] MEDS: polyethylene glycoL 3350 17 GM POWD.PACK PO SCH ×2 (08:29→22:53)
[2020-02-23] MEDS: Aspirin Enteric Coated 325 MG Tablet PO SCH (08:30)
[2020-02-23] MEDS: Sennosides 8.6 MG TABLET PO SCH (08:30)
[2020-02-23] MEDS: lisinopriL 20 MG TABLET PO SCH (08:30)
[2020-02-23] MEDS: allopurinoL 100 MG TABLET PO SCH (08:30)
[2020-02-23] MEDS: hydrALAZINE 25 MG TABLET PO SCH ×3 (08:30→22:52)
[2020-02-23] MEDS: NIFEdipine XL (24 HR) 30 MG TAB.ER.24 PO SCH (22:52)
[2020-02-23] MEDS: Acetaminophen 325 MG TABLET PO PRN (22:52)
[2020-02-23] MEDS: Melatonin 3 MG TABLET PO SCH (22:53)
[2020-02-23] MEDS: Mirtazapine 15 MG TABLET PO SCH (22:53)
[2020-02-24] MEDS: *HR* Enoxaparin 40 MG/0.4 ML SYRINGE SQ SCH (05:41)
[2020-02-24] MEDS: Acetaminophen 325 MG TABLET PO PRN ×2 (05:42→21:36)
[2020-02-24] MEDS: allopurinoL 100 MG TABLET PO SCH (08:09)
[2020-02-24] MEDS: lisinopriL 20 MG TABLET PO SCH (08:09)
[2020-02-24] MEDS: polyethylene glycoL 3350 17 GM POWD.PACK PO SCH ×2 (08:09→21:36)
[2020-02-24] MEDS: Sennosides 8.6 MG TABLET PO SCH (08:09)
[2020-02-24] MEDS: Aspirin Enteric Coated 325 MG Tablet PO SCH (08:09)
[2020-02-24] MEDS: hydrALAZINE 25 MG TABLET PO SCH ×3 (08:09→23:55)
[2020-02-24] MEDS ORDERED: Colchicine 0.6 MG TABLET PO ONE (14:16)
[2020-02-24 16:06] LABS: Basophils # 0.1 K/mcL (0.0-0.2); Basophils % 0.4 %; Eosinophils # 0.2 K/mcL (0.0-0.6); Eosinophils % 1.3 %; Hematocrit 36.2 % (37.5-50.1); Immature Granulocytes % 1.1 % (0-4); Lymphocytes # 1.1 K/mcL (0.6-4.6); Lymphocytes % 9.9 %; Mean Corpuscular HGB Conc 33.1 g/dL (31.6-35.5); Mean Corpuscular Hemoglobin 31.3 pg (28.0-33.3); Mean Corpuscular Volume 94.5 fL (83.0-100.0); Monocytes # 0.9 K/mcL (0.0-1.3); Monocytes % 7.5 %; Neutrophils # 9.1 K/mcL (1.6-8.9); Platelet Count 306 K/mcL (140-400); Red Blood Count 3.83 M/mcL (4.19-5.50); Red Cell Distribution Width 14.4 % (11.5-14.5); Segmented Neutrophils % 79.8 %; White Blood Count 11.4 K/mcL (4.3-11.1)
[2020-02-24 16:22] LABS: Calcium 8.8 mg/dL (8.6-10.3); Potassium 4.1 mEq/L (3.5-5.1)
[2020-02-24] MEDS: Melatonin 3 MG TABLET PO SCH (21:37)
[2020-02-24] MEDS: NIFEdipine XL (24 HR) 30 MG TAB.ER.24 PO SCH (21:38)
[2020-02-24] MEDS: Mirtazapine 15 MG TABLET PO SCH (21:38)
[2020-02-25] MEDS: *HR* Enoxaparin 40 MG/0.4 ML SYRINGE SQ SCH (05:11)
[2020-02-25] MEDS: lisinopriL 20 MG TABLET PO SCH (09:49)
[2020-02-25] MEDS: hydrALAZINE 25 MG TABLET PO SCH ×3 (09:50→23:05)
[2020-02-25] MEDS: Sennosides 8.6 MG TABLET PO SCH (09:50)
[2020-02-25] MEDS: allopurinoL 100 MG TABLET PO SCH (09:50)
[2020-02-25] MEDS: polyethylene glycoL 3350 17 GM POWD.PACK PO SCH ×2 (09:50→22:30)
[2020-02-25] MEDS: Aspirin Enteric Coated 325 MG Tablet PO SCH (09:50)
[2020-02-25] MEDS: NIFEdipine XL (24 HR) 30 MG TAB.ER.24 PO SCH (22:29)
[2020-02-25] MEDS: Melatonin 3 MG TABLET PO SCH (22:30)
[2020-02-25] MEDS: Mirtazapine 15 MG TABLET PO SCH (22:31)
[2020-02-26] MEDS: *HR* Enoxaparin 40 MG/0.4 ML SYRINGE SQ SCH (04:22)
[2020-02-26] MEDS: Aspirin Enteric Coated 325 MG Tablet PO SCH (09:49)
[2020-02-26] MEDS: polyethylene glycoL 3350 17 GM POWD.PACK PO SCH ×2 (09:49→21:55)
[2020-02-26] MEDS: lisinopriL 20 MG TABLET PO SCH (09:50)
[2020-02-26] MEDS: Sennosides 8.6 MG TABLET PO SCH (09:50)
[2020-02-26] MEDS: allopurinoL 100 MG TABLET PO SCH (09:50)
[2020-02-26] MEDS: hydrALAZINE 25 MG TABLET PO SCH ×2 (09:51→15:55)
[2020-02-26] MEDS: NIFEdipine XL (24 HR) 30 MG TAB.ER.24 PO SCH (21:53)
[2020-02-26] MEDS: Mirtazapine 15 MG TABLET PO SCH (21:54)
[2020-02-26] MEDS: Acetaminophen 325 MG TABLET PO PRN (21:54)
[2020-02-26] MEDS: Melatonin 3 MG TABLET PO SCH (21:54)
[2020-02-27] MEDS: hydrALAZINE 25 MG TABLET PO SCH ×3 (00:25→18:18)
[2020-02-27] MEDS: Acetaminophen 325 MG TABLET PO PRN ×2 (06:32→18:18)
[2020-02-27] MEDS: *HR* Enoxaparin 40 MG/0.4 ML SYRINGE SQ SCH (06:33)
[2020-02-27] MEDS: Sennosides 8.6 MG TABLET PO SCH (08:53)
[2020-02-27] MEDS: lisinopriL 20 MG TABLET PO SCH (08:53)
[2020-02-27] MEDS: Aspirin Enteric Coated 325 MG Tablet PO SCH (08:54)
[2020-02-27] MEDS: allopurinoL 100 MG TABLET PO SCH (08:54)
[2020-02-27] MEDS: polyethylene glycoL 3350 17 GM POWD.PACK PO SCH ×2 (08:55→20:55)
[2020-02-27] MEDS: Melatonin 3 MG TABLET PO SCH (20:54)
[2020-02-27] MEDS: NIFEdipine XL (24 HR) 30 MG TAB.ER.24 PO SCH (20:55)
[2020-02-27] MEDS: Mirtazapine 15 MG TABLET PO SCH (20:56)
[2020-02-28] MEDS: *HR* HYDROcodone/Acet 5/325 mg TABLET PO PRN ×3 (00:25→21:25)
[2020-02-28] MEDS: hydrALAZINE 25 MG TABLET PO SCH ×3 (00:25→16:22)
[2020-02-28] MEDS: *HR* Enoxaparin 40 MG/0.4 ML SYRINGE SQ SCH (06:09)
[2020-02-28] MEDS: allopurinoL 100 MG TABLET PO SCH (07:28)
[2020-02-28] MEDS: Aspirin Enteric Coated 325 MG Tablet PO SCH (07:28)
[2020-02-28] MEDS: Sennosides 8.6 MG TABLET PO SCH (07:28)
[2020-02-28] MEDS: lisinopriL 20 MG TABLET PO SCH (07:28)
[2020-02-28] MEDS: polyethylene glycoL 3350 17 GM POWD.PACK PO SCH ×2 (07:29→21:27)
[2020-02-28] MEDS: Acetaminophen 325 MG TABLET PO PRN (18:01)
[2020-02-28] MEDS: cloNIDine HCL 0.1 MG TABLET PO PRN (18:42)
[2020-02-28] MEDS: Mirtazapine 15 MG TABLET PO SCH (21:21)
[2020-02-28] MEDS: Melatonin 3 MG TABLET PO SCH (21:23)
[2020-02-28] MEDS: NIFEdipine XL (24 HR) 30 MG TAB.ER.24 PO SCH (21:23)
[2020-02-29] MEDS: hydrALAZINE 25 MG TABLET PO SCH ×3 (00:40→15:31)
[2020-02-29] MEDS: *HR* HYDROcodone/Acet 5/325 mg TABLET PO PRN ×2 (05:16→20:35)
[2020-02-29] MEDS: *HR* Enoxaparin 40 MG/0.4 ML SYRINGE SQ SCH (05:16)
[2020-02-29] MEDS: Aspirin Enteric Coated 325 MG Tablet PO SCH (08:29)
[2020-02-29] MEDS: allopurinoL 100 MG TABLET PO SCH (08:29)
[2020-02-29] MEDS: Sennosides 8.6 MG TABLET PO SCH (08:29)
[2020-02-29] MEDS: polyethylene glycoL 3350 17 GM POWD.PACK PO SCH ×2 (08:29→20:34)
[2020-02-29] MEDS: lisinopriL 20 MG TABLET PO SCH (08:29)
[2020-02-29] MEDS: NIFEdipine XL (24 HR) 30 MG TAB.ER.24 PO SCH (20:30)
[2020-02-29] MEDS: Melatonin 3 MG TABLET PO SCH (20:31)
[2020-02-29] MEDS: Mirtazapine 15 MG TABLET PO SCH (20:31)
[2020-03-01] MEDS: *HR* HYDROcodone/Acet 5/325 mg TABLET PO PRN (01:14)
[2020-03-01] MEDS: hydrALAZINE 25 MG TABLET PO SCH ×2 (01:14→08:11)
[2020-03-01] MEDS: *HR* Enoxaparin 40 MG/0.4 ML SYRINGE SQ SCH (06:34)
[2020-03-01 07:57] VITALS: BP 147/76
[2020-03-01] MEDS: lisinopriL 20 MG TABLET PO SCH (08:10)
[2020-03-01] MEDS: Sennosides 8.6 MG TABLET PO SCH (08:11)
[2020-03-01] MEDS: polyethylene glycoL 3350 17 GM POWD.PACK PO SCH (08:11)
[2020-03-01] MEDS: allopurinoL 100 MG TABLET PO SCH (08:11)
[2020-03-01] MEDS: Aspirin Enteric Coated 325 MG Tablet PO SCH (08:11)
[2020-03-01] MEDS ORDERED: FLU Vac QV 20-21 (6Month+)/PF 0.5 ML SYRINGE IM ONE (15:16)
== END 2020-03-01 17:20 | disposition home health service (06) | DRG 57 ==
LOC: INPGRE 01-17 17:29
PROVIDERS: ADMIT Family Medicine; ATTEND Family Medicine